=== PATIENT | male | born 1960 | race African-American/Black ===

== ENCOUNTER → 2025-01-24 | Emergency (ER) | payer MEDICARE ==
[~2025-01-24] VITALS: Ht 172.7 cm; Wt 81.0 kg
[~2025-01-24] MED LIST: HydrALAZINE HCL 20 MG/ML VIAL IVP ONE
[2025-01-24 14:14] VITALS: BP 208/88; PULSE 70; RESP 18; TEMP 97.5; O2SAT 98
[2025-01-24 14:38] LABS: BASOPHILS % (AUTO) 0.4 % (0.0-2.0); HEMATOCRIT 41.4 % (41-53); HEMOGLOBIN 13.4 g/dL (13.5-17.5); LYMPHOCYTES # (AUTO) 0.7 K/uL (1.0-4.8); LYMPHOCYTES % (AUTO) 15.2 % (22.0-44.0); MEAN CORPUSCULAR HEMOGLOBIN 28.3 pg (26.0-34.0); MEAN CORPUSCULAR HGB CONC 32.4 G/dL (31.0-37.0); MEAN CORPUSCULAR VOLUME 87 fL (80-100); MONOCYTES # (AUTO) 0.5 K/uL (0.1-1.0); MONOCYTES % (AUTO) 9.6 % (2.0-9.0); NEUTROPHILS # (AUTO) 3.5 K/uL (1.8-7.7); NEUTROPHILS % (AUTO) 73.8 % (40.0-70.0); PLATELET COUNT (AUTO) 266 K/uL (150-450); RED BLOOD CELL COUNT(AUTO) 4.74 MIL/uL (4.50-5.90); RED CELL DISTRIBUTION WIDTH 14.7 % (11.5-14.5); WHITE BLOOD COUNT (AUTO) 4.8 K/uL (4.5-11.0)
[2025-01-24 14:44] LABS: ANION GAP 4 mmol/L (8-16); CALCIUM, TOTAL 9.1 mg/dL (8.8-10.5); CARBON DIOXIDE 32 mmol/L (22-29); CHLORIDE 102 mmol/L (98-107); CREATININE 1.07 mg/dL (0.60-1.30); GLOMERULAR FILTR. RATE CALC > 60 mL/min (>60); GLUCOSE,RANDOM 111 mg/dL (70-110); POTASSIUM 3.8 mmol/L (3.5-5.1); SODIUM SERUM 138 mmol/L (136-145); UREA NITROGEN, BLOOD 15 mg/dL (7-18)
[2025-01-24 14:53] LABS: TROPONIN I-HIGH SENSITIVITY 27 ng/L (<76)
[2025-01-24 15:06] LABS: ALCOHOL, BLOOD (SERUM) < 3 mg/dL (0-10)
== END | disposition left against medical advice (07) ==
LOC: EMS 12:53
DX: I10 Essential (primary) hypertension (principal); R00.1 Bradycardia, unspecified; F22 Delusional disorders
CPT/HCPCS: 99284; 80048; 83735; 84484; 85025; 93005; G0480